=== PATIENT | female | born 1980 | race African-American/Black ===

== ENCOUNTER 2017-03-11 23:04 | Emergency (ER) | payer OTHER ==
--- NOTE | ~2017-03-11 | CR72 ---
[facility] A Service of [facility] RADIOLOGY TEXT RESULTS PATIENT: MARIVEL CHIANG LOCATION: [facility] : 76 UNIT #: [id number] AGE: [address]: Valorie Araujo MD SEX: F ORDER DR: [id number] [facility] [address] [place], [place] [address] [id number] E MR#: [id number] Acc #: [id number] NAME: MARIVEL CHIANG : 1980 SEX: F STUDY DATE/TIME: 03/11/2017 23:49 UNIT: [facility] ROOM: STUDY DESCRIPTION: CR Chest Single View Portable Attending Physician: Valorie Araujo M.D. Ordering Physician: Valorie Araujo M.D. Primary Care Physician: Landy Hoskins M.D. MEDICAL IMAGING REPORT This report is preliminary unless electronic signature is present EXAM Portable chest INDICATION Shortness of air tonight. PROCEDURE Frontal view chest. COMPARISON 09/19/2016. FINDINGS Heart size is normal. No dense consolidation. No pneumothorax. IMPRESSION No active process. Dictated by... Shaquille Trimble M.D. THIS IS AN ELECTRONICALLY VERIFIED REPORT Shaquille Trimble M.D. at 03/12/2017 10:12 PM GUILLAUME/kinjal TD: 03/12/2017 09:22 JOB #: [id number] MEDICAL IMAGING REPORT Page 1 of 1 COPY
--- NOTE | ~2017-03-11 | CT71 ---
[facility] A Service of [facility] RADIOLOGY TEXT RESULTS PATIENT: MARIVEL CHIANG LOCATION: [facility] : 76 UNIT #: [id number] AGE: [address]: Valorie Araujo MD SEX: F ORDER DR: [id number] [facility] [address] [place], [place] [address] [id number] E MR#: [id number] Acc #: [id number] NAME: MARIVEL CHIANG : 1980 SEX: F STUDY DATE/TIME: 03/11/2017 23:16 UNIT: [facility] ROOM: STUDY DESCRIPTION: CT Head Wo Contrast Attending Physician: Valorie Araujo M.D. Ordering Physician: Valorie Araujo M.D. Primary Care Physician: Landy Hoskins M.D. MEDICAL IMAGING REPORT This report is preliminary unless electronic signature is present EXAM CT head without contrast INDICATION Right-sided head and face numbness. Slurred speech for the past [address] of the head. This CT examination was performed with one or more of the following radiation dose reduction techniques: automatic exposure control, adjustment of mA and/or kV according to patient size, and iterative reconstruction. COMPARISON 10/16/2012. FINDINGS No acute hemorrhage, abnormal mass effect, extraaxial fluid collection or hydrocephalus. No convincing evidence for an acute or early subacute large territory infarct. No calvarial fracture. The paranasal sinuses and mastoid air cells are clear. IMPRESSION No acute intracranial findings. Dictated by... Shaquille Trimble M.D. THIS IS AN ELECTRONICALLY VERIFIED REPORT Shaquille Trimble M.D. at 03/12/2017 10:15 PM EED/kinjal TD: 03/12/2017 09:05 [facility] A Service [facility] RADIOLOGY TEXT RESULTS PATIENT: MARIVEL CHIANG LOCATION: [facility] : 76 UNIT #: [id number] AGE: [address]: Valorie Araujo MD SEX: F ORDER DR: JOB #: [id number] MEDICAL IMAGING REPORT Page 1 of 1 COPY
[~2017-03-11 23:04] MED LIST: ALBUTEROL17 GM INH; ALPRAZOLAM PO; AMITRYPTYLINE PO; ATIVAN PO; BACTRIM 400-801 TA1 PO; BACTRIM DS TABL1 TA1 PO; BACTRIM DS TABL1 TAB PO; BENZONATATE PO; CIPRO PO; CITRATE OF MAG296 ML PO; CORRECTOL5 MG PO; DICYCLOMINE HCL20 MG PO; DOXYCYCLINE HY100 M1 PO; DOXYCYCLINE PO; FLAGYL PO; FLEXERIL PO; HYDROCODON-ACE1 EAC7 PO; IBUPROFEN PO; IBUPROFEN800 MG PO; KEFLEX PO; KETOPROFEN PO; KLONOPIN PO; LEXAPRO PO; LORTAB 5/500 TA1 TA1 PO; MEDROL DOSEPAK4 MG PO; MIRALAX255 GM PO; PERCOCET5/325 PO; PHENERGAN PO; ROBAXIN PO; VICODIN 5/500 T1 TAB PO; VICODIN PO; ZANTAC PO; ZITHROMAX PO
== END 2017-03-12 | disposition left against medical advice (07) ==
LOC: CED 23:04
DX: Z53.21 Procedure and treatment not carried out due to patient leaving prior to being seen by health care provider (principal)
CPT/HCPCS: 70450; 71010